=== PATIENT | male | born 1955 | race Caucasian/White ===

== ENCOUNTER → 2023-02-13 | Outpatient (CLI) | payer MEDICARE | END | disposition home or self-care (01) | LOC: LABPAT 13:20 | PROVIDERS: ATTEND Orthopaedic Surgery | DX: Z01.812 Encounter for preprocedural laboratory examination (principal); Z22.322 Carrier or suspected carrier of Methicillin resistant Staphylococcus aureus; M16.12 Unilateral primary osteoarthritis, left hip | CPT/HCPCS: 87070 ==

== ENCOUNTER 2023-02-24 11:08 | Observation (INO) | payer MEDICARE ==
[2023-02-21 09:29] VITALS: BMI 35.5
--- NOTE | 2023-02-23 12:59 | HP ---
HISTORY AND PHYSICAL DATE OF SURGERY: 02/24/2023. HISTORY OF PRESENT ILLNESS: Moises Connolly is a 67-year-old patient seen with symptomatic left hip osteoarthritis. We discussed options for treatment. The patient elected to proceed with direct anterior left total hip arthroplasty. Consent regarding the procedure was obtained. Medical clearance was provided by Yaa Martinez NP. PAST MEDICAL HISTORY: Noncontributory. PAST SURGICAL HISTORY: Noncontributory. DAILY MEDICATIONS: 1. Lisinopril. 2. Mobic. 3. Aspirin. ALLERGIES: None. SOCIAL HISTORY: He denies tobacco use. PHYSICAL EVALUATION OF LEFT HIP: Diffuse tenderness about the hip girdle. Limited range of motion with severe pain. Positive hip impingement sign. Straight-leg raise is negative. Distal neurovascular exam is intact. RADIOGRAPHS: Radiographs of the left hip revealed severe osteoarthritic changes. IMPRESSION: 1. Left hip osteoarthritis. 2. Hypertension. PLAN: Direct anterior left total hip arthroplasty. MMODL / IJN: [id number] /
[~2023-02-24 11:08] MED LIST: ACETAMINOPHEN TAB 500 MG TAB PO PRN; MELOXICAM 7.5 MG TAB PO PRN; TRANEXAMIC ACID IN NACL,ISO-OS 1,000 MG in SALINE 1 100ML.BAG IVPB PRN; ceFAZolin 3 GM in SODIUM CHLORIDE 0.9% 100 ML IVPB PRN
[2023-02-24] MEDS ORDERED: MIDAZOLAM 2 MG/2 ML VIAL IV PRN (11:20)
[2023-02-24] MEDS ORDERED: LIDOCAINE 1% (10MG/ML) FOR IV START INTRADERMA PRN (11:20)
[2023-02-24] MEDS ORDERED: DEXAMETHASONE SOD PHOSPHATE 4 MG/ML 1 ML VIAL IV ONE (11:20)
[2023-02-24] MEDS ORDERED: LACTATED RINGERS 1,000 ML IV SCH (11:20)
[2023-02-24] MEDS ORDERED: ONDANSETRON 4 MG/2 ML VIAL IVP ONE (11:20)
[2023-02-24] MEDS ORDERED: fentaNYL (PF) 50 MCG/ML 2 ML AMP IVP ONE (12:05)
[2023-02-24] MEDS ORDERED: MIDAZOLAM 2 MG/2 ML VIAL IVP ONE (12:05)
[2023-02-24] MEDS ORDERED: NEOSTIGMINE 1 MG/ML 10 ML VIAL ONE ×2 (12:25)
[2023-02-24] MEDS ORDERED: GLYCOPYRROLATE 0.2 MG/ML 2 ML VIAL ONE ×2 (12:25)
[2023-02-24] MEDS ORDERED: HYDROmorphone (PF) 1 MG/ML ONE ×2 (12:25)
[2023-02-24] MEDS ORDERED: SUCCINYLCHOLINE CHLORIDE 200 MG/10 ML VIAL IV ONE ×2 (12:25)
[2023-02-24] MEDS ORDERED: TRANEXAMIC ACID IN NACL,ISO-OS 1,000 MG/100 ML BAG ONE (12:25)
[2023-02-24] MEDS ORDERED: PHENYLEPHRINE-0.9% NACL SYG 1,000 MCG/10 ML SYRINGE ONE ×2 (12:25)
[2023-02-24] MEDS ORDERED: ROPIVACAINE 5 MG/ML 30 ML VIAL ONE ×2 (12:25)
[2023-02-24] MEDS ORDERED: SODIUM CHLORIDE 0.9% (PF) 10 ML VIAL ONE ×2 (12:25)
[2023-02-24] MEDS ORDERED: PROPOFOL 10 MG/ML 20 ML VIAL IV ONE ×2 (12:25)
[2023-02-24] MEDS ORDERED: ROCURONIUM 10 MG/ML (5 ML VIAL) IV ONE ×2 (12:25)
[2023-02-24] MEDS ORDERED: KETAMINE 10 MG/ML 20 ML VIAL ONE ×2 (12:25)
[2023-02-24] MEDS ORDERED: fentaNYL (PF) 50 MCG/ML 2 ML AMP ONE ×2 (12:25)
[2023-02-24] MEDS ORDERED: MIDAZOLAM 2 MG/2 ML VIAL ONE ×2 (12:25)
[2023-02-24] MEDS ORDERED: ceFAZolin 1,000 MG in SODIUM CHLORIDE 0.9% 1,000 ML IRRIGATION ONE (13:29)
[2023-02-24] MEDS ORDERED: HYDROmorphone 0.5 MG/0.5 ML SYRINGE IVP PRN ×2 (14:32)
[2023-02-24] MEDS ORDERED: HYDROcodone/APAP 5-325MG 1 EACH TAB PO PRN (14:32)
[2023-02-24] MEDS ORDERED: ONDANSETRON 4 MG/2 ML VIAL IVP PRN (14:32)
[2023-02-24] MEDS ORDERED: NALOXONE 0.4 MG/ML 1 ML VIAL IV PRN (14:32)
--- NOTE | 2023-02-24 14:32 | P.OP ---
Date of Procedure: 02/24/23 Preoperative Diagnosis: Left hip osteoarthritis Postoperative Diagnosis: Left hip osteoarthritis Procedure(s) Performed: Direct anterior left total hip arthroplasty Implants: 1. Depuy Corail size 13 high offset with collar press-fit femoral stem 2. Depuy pinnacle 60 mm press-fit acetabular shell 3. Depuy pinnacle neutral polyethylene acetabular liner 36 mm ID 60 mm OD 4. Biolox delta ceramic femoral head +1.5 36 mm Anesthesia: GETA, regional (Erector spinae block) Surgeon: Kendall Molina Parts And Service Manager #1: Will Swain Estimated Blood Loss (ml): 65 Pathology: other (Femoral head) Condition: stable Disposition: PACU Indications for Procedure: 67-year-old patient seen with symptomatic left hip osteoarthritis. After treatment options were discussed, patient elected to proceed with direct anterior approach left total hip arthroplasty Operative Findings: see description of procedure Description of Procedure: The patient was taken to the operative suite. Patient underwent a general anesthetic by the department of anesthesia. Patient was then transferred to the Fletcher table. Patient was given preoperative IV antibiotics and TXA. Both lower extremities were placed in standard leg spars. The hip was then prepped and draped in the normal sterile orthopedic fashion. A standard anterior incision was made beginning 3 cm lateral and 1 cm distal to the ASIS extending 10 cm. Dissection was then carried down through the subcutaneous soft tissues down to the fascia overlying the tensor fascia fariha. An incision was now made through the fascia. Careful dissection was taken down exposing the tensor fascia fariha muscle. A Cobra retractor was now placed along the medial femoral neck and a second one along the lateral femoral neck. The venous circumflex vessels were now identified, cauterized and clipped. We identified the anterior hip capsule. An incision was made through the hip capsule along the lateral border. I performed a partial anterior capsulectomy. Retractors were now placed around the femoral neck itself. A femoral neck cut was now made with a sagittal saw. It was completed with an osteotome at the lateral neck area. The femoral head was now removed without difficulty. The extremity was now rotated to 60 of external rotation. It was locked in position. Residual labrum was now debrided out. Serial reaming was performed of the acetabulum while Uli HOLLAND assisted holding an anterior retractor for exposure. Once we reached the appropriate size and a trial was position and fit nicely. The appropriate size was now chosen opened and made available. It was introduced into the acetabulum without difficulty. The C-arm/fluoroscopy was now brought into the operative field. We made sure we had a true AP pelvic view. We now under direct C- arm/fluoroscopy introduced into the acetabular component with appropriate version and inclination. I held the cup in appropriate position while Uli HOLLAND used a mallet to seat the acetabular component. I noted the component now to be well seated and stable. Acetabular cup introduce her was removed. The C-arm was pulled back. An appropriate liner was introduced and clicked into position. It was felt to be stable. At this point retractors were removed. The extremity was now placed into 130 external rotation with no traction. The leg was now dropped to the ground and adducted. Appropriate retractors were now positioned along the proximal femur. We also placed our femoral look into position. Additional capsular releasing was performed to gain access to the proximal femur. We now used a box osteotome. A canal finder was now utilized. Serial broaching was now performed with the assistance of Uli HOLLAND tapping the broaches down with a mallet while held the broach in appropriate rotation and position. This was done until we reached the appropriate size with good overall rotational stability. Appropriate calcar planing was performed. A t rial head/neck was placed into position. The hip was now reduced. The C- arm/fluoroscopy was brought back into the operative field. I obtained AP pelvis which demonstrated adequate leg length alignment. The trial components appeared adequately size and adequately positioned. The C-arm/fluoroscopy was pulled back. Retractors were repositioned and the hip was dislocated. The leg was again taken down to the ground and adducted. Appropriate retractors were repositioned as well as the femoral hook. All trial components were removed. The femoral implant was opened along with the femoral head. The femoral implant was introduced on the appropriate handle into our pre-broached area. I held the component position well Uli HOLLAND used a mallet to seat the femoral component. The femoral component was now noted to be well seated and stable.. The femoral head was introduced with good positioning and fixation noted. Retractors were now removed. The hip was now reduced. There appeared be good positioning of the hip confirmed on intraoperative fluoroscopy. Spot films were obtained to document this. A second gram of TXA was given. Bipolar cautery had been utilized intermittently through the procedure for hemostasis. The wound was irrigated copiously with pulse lavage mechanical irrigation. The fascia was repaired with Vicryl suture. The subcutaneous soft tissues were repaired in layers with Vicryl suture. The skin was approximated with pernio/Dermabond. Sterile dressings were applied. Patient was then awakened, transferred to a bed and taken to recovery in stable condition. Uli HOLLAND assisted with the complex procedure.
--- NOTE | 2023-02-24 14:36 | XR ---
EXAMINATION TYPE: XR Hip Limited LT DATE OF EXAM: 02/24/2023 COMPARISON: NONE HISTORY: Postop TECHNIQUE: 2 views submitted FINDINGS: There is no evidence of erosive change or acute fracture. DAP: .7337 IMPRESSION: 1. No evidence of acute fracture or dislocation.
--- NOTE | 2023-02-24 14:38 | FL ---
EXAMINATION TYPE: FL guidance operating room DATE OF EXAM: 02/24/2023 HISTORY: Fluoroscopy time Total dose area product (DAP) in uGy*m?, mGy*cm? (or similar): 0.7337 IMPRESSION: 1. Fluoroscopy time.
--- NOTE | 2023-02-24 14:57 | P.ANPRN ---
Procedure Note - Anesthesia - Nerve Block Performed Left Martin Time Out Performed: Yes (12:04) Date of Procedure: 02/24/23 Procedure Start Time: : Procedure Stop Time: :08 Location of Patient: PreOp Indication: Acute Post-Operative Pain, Requested by Surgeon (DR Molina) Sedation Type: Sedate with meaningful contact maintained Preparation: Sterile Prep Position: Supine Catheter: None Needle Types: Pajunk Needle Gauge: 21 Ultrasound used to visualize needle placement: Yes Ultrasound used to observe medication spread: Yes Injectate: 0.5% Ropivacaine (see comment for volume) (20cc +5cc PF Normal saline) Blood Aspirated: No Pain Paresthesia on Injection Noted: No Resistance on Injection: Normal Image Stored and Saved: Yes Events: Uneventful and Well Tolerated
[2023-02-24] MEDS: HYDROmorphone 0.5 MG/0.5 ML SYRINGE IVP PRN ×3 (15:08→16:44)
[2023-02-24] MEDS: LACTATED RINGERS 1,000 ML IV SCH ×2 (15:20→16:18)
--- NOTE | 2023-02-24 17:51 | P.CONS ---
History of Present Illness - Reason for Consult Consult date: 02/24/23 HTN Requesting physician: Kendall Molina - Chief Complaint hip pain - History of Present Illness Patient is a 67-year-old male with a history of hypertension, osteoarthritis, and prior tobacco use who presented for elective left direct anterior hip total arthroplasty. He tolerated the procedure well without any immediate postoperative complications. Patient seen and examined at bedside. His is present. She reports that his oxygen has been dropping into the high 70s when he is sleeping but that when she wakes him up it goes right back up. He reports some throbbing pain in his left hip. He denies any chest pain, shortness breath, nausea, vomiting, lightheadedness. He denies any recent cough, cold, fever, flu. He has been using a a cane mostly at home and at times a walker. Vital signs reviewed General: nontoxic, no distress, appears at stated age Derm: warm, dry Eyes: EOMI, no lid lag, anicteric sclera, pupils equal round reactive to light ENT: Nose and ears atraumatic, no thrush, no pharyngeal erythema Cardiovascular: S1S2 reg, no murmur, positive posterior tibial pulse bilateral, no edema Lungs: clear to auscultation bilateral, no rhonchi, no rales, no wheeze, no accessory muscle use Abdominal: soft, nontender to palpation, no guarding, no appreciable organomegaly, normal bowel sounds Ext: no gross muscle atrophy, moving all 4 extremities independently, no contractures Neuro: CN II-XII grossly intact, no focal neuro deficits Psych: Alert, oriented, appropriate affect Assessment: 67 yo M with left direct anterior hip total arthroplasty Acute hypoxic respiratory failure, due to pain medication and sedation HTN elevated post-op likely due to pain CBD use Imaging: hip x-ray- no fracutre or dislocation Data Review: Vitals reviewed temperature 97.5, pulse 75, respirations 18, blood pressure 1 44/74, O2 sat 94% on room air Reviewed Preoperative blood work. Hemoglobin 15, hematocrit 45.9, BUN 25.2, creatinine 1.2 with GFR 71.1 Plan: -Resume home lisinopril, follow blood pressures -Add oxygen while patient is sleeping -Incentive spirometer -Check CBC in a.m. -PT/OT -Continue with Dilaudid and [place] as needed for pain Thank you for allowing us to participate in the care of this pleasant patient. Do not hesitate to contact us with questions. Someone can be reached from the [facility] hospitalist group all hours of the day at [phone] or via [employer]. This dictation was prepared using [employer] voice recognition software. Though every attempt is made to correct errors during during dictation some may still exist. Past Medical History Past Medical History: Hypertension, Osteoarthritis (OA) History of Any Multi-Drug Resistant Organisms: None Reported Past Surgical History: Orthopedic Surgery Additional Past Surgical History / Comment(s): ORIF RT LEG IN TEENS OR EARLY 20S. URETHRAL BALLOON 2019. COLONOSCOPY Past Anesthesia/Blood Transfusion Reactions: No Reported Reaction Smoking Status: Former smoker - Past Family History Mother Family Medical History: No Reported History Medications and Allergies Home Medications Medication Instructions Recorded Confirmed Type Aspirin EC [Ecotrin Low Dose] 81 mg PO DAILY 02/21/23 02/21/23 History Meloxicam [Mobic] 15 mg PO DAILY 02/21/23 02/21/23 History lisinopriL 40 mg PO DAILY 02/21/23 02/21/23 History Allergies Allergy/AdvReac Type Severity Reaction Status Date / Time shellfish derived Allergy Rash/Hives Verified 02/24/23 11:32 Physical Exam Osteopathic Statement: *. No significant issues noted on an osteopathic structural exam other than those noted in the History and Physical/Consult. Vitals: Vital Signs Temp Pulse Pulse Resp BP Pulse Ox 02/24/23 16:50 97.5 F L 18 144/74 94 L 02/24/23 16:01 75 16 146/54 94 L 02/24/23 15:47 73 16 162/56 100 02/24/23 15:32 78 16 155/51 100 02/24/23 15:17 70 16 157/58 100 02/24/23 15:02 97.6 F 87 22 172/107 98 02/24/23 12:25 58 L 16 174/75 100 02/24/23 12:10 62 16 167/57 100 02/24/23 11:44 97.4 F L 88 16 181/78 97 Intake and Output 02/24/23 02/24/23 02/24/23 06:59 14:59 22:59 Intake Total 901 400 Output Total 65 Balance 836 400 Intake: IV 901 400 Output: Estimated Blood Loss 65 Other: Weight 140.3 kg
[2023-02-24] MEDS: HYDROcodone/APAP 7.5-325MG 1 EACH TAB PO PRN (20:27)
[2023-02-24] MEDS: ceFAZolin 3 GM in SODIUM CHLORIDE 0.9% 100 ML IVPB SCH (20:27)
[2023-02-24] MEDS ORDERED: SENNOSIDES-DOCUSATE SODIUM 1 EACH TAB PO SCH (21:00)
[2023-02-25] MEDS: HYDROmorphone 0.5 MG/0.5 ML SYRINGE IVP PRN (00:40)
[2023-02-25] MEDS: LACTATED RINGERS 1,000 ML IV SCH (00:41)
[2023-02-25] MEDS: HYDROcodone/APAP 7.5-325MG 1 EACH TAB PO PRN ×2 (04:02→13:04)
[2023-02-25] MEDS: ceFAZolin 3 GM in SODIUM CHLORIDE 0.9% 100 ML IVPB SCH (04:03)
[2023-02-25 07:20] VITALS: BP 148/78; PULSE 91; RESP 18; TEMP 98.6
--- NOTE | 2023-02-25 08:08 | P.PN ---
Subjective Progress Note Date: 02/25/23 Principal diagnosis: Status post direct anterior left total hip arthroplasty Patient is examined today at bedside, he is resting in his hospital bed. Patient's is present at bedside. He states that the pain is controlled, he notices more discomfort when up and ambulating. He did have some trouble initiating his urinary stream today, this seems to be improving, they are watching this closely with postvoid residuals. He has no headaches, lightheadedness, chest pain or shortness of breath. Objective - Vital Signs Vital signs: Vital Signs Temp 98.6 F 02/25/23 07:19 Pulse 91 02/25/23 07:19 Resp 18 02/25/23 07:19 BP 148/78 02/25/23 07:19 Pulse Ox 97 02/25/23 07:19 FiO2 Intake & Output 02/24/23 02/25/23 02/25/23 18:59 06:59 18:59 Intake Total 1501 1640 Output Total 65 500 Balance 1436 1140 Weight 140.3 kg Intake: IV 1301 Intake, IV Titration 200 1000 Amount Lactated Ringers 1,000 ml 200 900 @ 100 mls/hr IV .Q10H [facility] Rx#:[id number] ceFAZolin 3 gm In Sodium 100 Chloride 0.9% 100 ml @ 200 mls/hr IVPB Q8H [facility] Rx#:[id number] Oral 640 Output: Urine 500 Estimated Blood Loss 65 - Exam Left lower extremity: Incision is clean, dry, and intact. The foam dressing is in good condition. There is minimal soft tissue swelling and ecchymosis surrounding the medial and lateral aspects of the incision. Calf is soft, no tenderness with palpation. Plantar flexion, dorsiflexion, EHL, FHL are intact. Sensory exam to light touch throughout the extremity is intact, dorsal pedis pulses 2+. Assessment and Plan Assessment: Postoperative day #1 status post direct anterior left total hip arthroplasty Plan: Pain control, continues current medications DVT prophylaxis, continue Lovenox during hospital stay Wound care instructions were discussed, this including icing and elevating along with showering instructions Await physical therapy/occupational therapy evaluation. Weight-bear as tolerated with walker Encourage incentive spirometer Medical recommendations Discharge planning: Pending how patient does physical therapy, hopefully discharge home today with home therapy Time with Patient: Less than 30
[2023-02-25 08:59] LABS: HCT 40.6 % (39.0-53.0); HGB 13.3 gm/dL (13.0-17.5); MCH 30.2 pg (25.0-35.0); MCHC 32.6 g/dL (31.0-37.0); MCV 92.6 fL (80.0-100.0); Mean Platelet Volume 7.9; Platelet Count 197 k/uL (150-450); RBC 4.38 m/uL (4.30-5.90); RDW 13.6 % (11.5-15.5); WBC 7.9 k/uL (3.8-10.6)
[2023-02-25] MEDS ORDERED: lisinopriL 20 MG TAB PO SCH (09:00)
[2023-02-25] MEDS ORDERED: FAMOTIDINE 20 MG TAB PO SCH (09:00)
[2023-02-25] MEDS ORDERED: MELOXICAM 7.5 MG TAB PO SCH (09:00)
[2023-02-25] MEDS ORDERED: ENOXAPARIN 40 MG/0.4 ML SYRINGE SQ SCH (09:00)
--- NOTE | 2023-02-25 10:21 | P.PN ---
Subjective Progress Note Date: 02/25/23 Patient is a 67-year-old male with a history of hypertension, osteoarthritis, and prior tobacco use who presented for elective left direct anterior hip total arthroplasty. He tolerated the procedure well without any immediate postoperative complications. Patient seen and examined at bedside. Doing well. Pain is well controlled. No nausea or vomiting. Has been up and walking with physical therapy. Had a discussion with him and his that I would recommend staying on lisinopril 40 mg daily. Vital signs reviewed General: nontoxic, no distress, appears at stated age Cardiovascular: S1S2 reg, no murmur, positive posterior tibial pulse bilateral, Lungs: CTA bilateral, no rhonchi, no rales , no accessory muscle use Abdominal: soft, nontender to palpation, no guarding, no appreciable organomegaly Ext: no gross muscle atrophy, no edema, no contractures Neuro: CN II-XI grossly intact, no focal neuro deficits Psych: Alert, oriented, appropriate affect Assessment: 67 yo M with left direct anterior hip total arthroplasty Acute hypoxic respiratory failure, due to pain medication and sedation- resolved HTN CBD use Obesity with BMI 36.7 Data Review: Vital signs revealed temperature 98.6 pulse 91, respirations 18, blood pressure 148/78, O2 sat 97% on room air Labs reviewed and postoperative hemoglobin 13.3 Plan: Medically optimized for discharge at the discretion of orthopedic surgery. I have addressed his home lisinopril on discharge medication reconciliation. I have added parameters for him to take the 40 mg and when to consider cutting the pill in half for 20 mg. I did speak with him and he will follow-up with his primary care provider (was located 3 hours from here) in approximately one week in he will take his blood pressures daily and make a log. Thank you for allowing us to participate in the care of this pleasant patient. Do not hesitate to contact us with questions. Someone can be reached from the [facility] hospitalist group all hours of the day at [phone] or via [employer]. This dictation was prepared using [employer] voice recognition software. Though every attempt is made to correct errors during during dictation some may still exist. Objective - Vital Signs Vital signs: Vital Signs Temp 98.6 F 02/25/23 07:19 Pulse 91 02/25/23 09:05 Resp 18 02/25/23 09:05 BP 148/78 02/25/23 07:19 Pulse Ox 97 02/25/23 07:19 FiO2 Intake & Output 02/24/23 02/25/23 02/25/23 18:59 06:59 18:59 Intake Total 1501 1640 Output Total 65 500 300 Balance 1436 1140 -300 Weight 140.3 kg Intake: IV 1301 Intake, IV Titration 200 1000 Amount Lactated Ringers 1,000 ml 200 900 @ 100 mls/hr IV .Q10H ART Rx#:[id number] ceFAZolin 3 gm In Sodium 100 Chloride 0.9% 100 ml @ 200 mls/hr IVPB Q8H [facility] Rx#:[id number] Oral 640 Output: Urine 500 300 Estimated Blood Loss 65 Other: Voiding Method Urinal - Labs CBC & Chem 7: 02/25/23 08:36
--- NOTE | 2023-02-25 11:52 | P.DS ---
Providers Date of admission: 02/25/23 08:04 Expected date of discharge: 02/25/23 Attending physician: Kendall Molina Consults: 02/24/23 14:32 Consult Physician Routine Consulting Provider: Holly Mon Consult Reason/Comments: Medical management Do you want consulting provider notified?: Yes Primary care physician: Stated None Hospital Course: Date of admission: 02/24/2023 Date of discharge: 02/25/2023 Admission diagnosis: Status post direct anterior left total hip arthroplasty Discharge diagnosis: Same Attending physician: Dr. Molina Surgical procedures: Direct anterior left total hip arthroplasty Brief history: Patient is a 67-year-old male with a history of progressive primary left hip osteoarthritis. At this point patient has failed conservative treatment measures and has opted to proceed with a elective direct anterior left total hip arthroplasty. Hospital course: Details of patient's surgery can be found in operative report. Patient tolerated the procedure well and was subsequently transported to orthopedic floor. Patient's orthopeidc and medical care was provided daily. Patient had daily laboratory tests performed for evaluation of overall blood counts. Patient had daily physical therapy to include strengthening range of motion as well as education with walker ambulation. Patient was treated with Lovenox for their postoperative DVT prophylaxis during their inpatient stay. Patient was noted to have a relatively uneventful postoperative course. Patient reported satisfactory pain control with oral pain medications by postoperative day 0. Patient showed satisfactory progress with physical therapy. Patient moved steadily through the program and had no difficulty meeting the goals by postoperative day 1. Given patient's otherwise satisfactory course and having met physical therapy goals, plan is to discharge patient home on postoperative day 1. Discharge condition/disposition: Patient will be discharged home in stable condition. Discharge medications: Instructions are given on resumption of patient's normal daily medications per primary care recommendation, in addition patient will be prescribed Mcallister 7.5 mg/325 mg, Senna. Discharge instructions: 1. Wound care and infection precautions, keep incision dry and covered while showering, no lotions, creams, moisturizers. No soaking, tubs, pools, hottubs. Do not scrub over the incision. 2. Weight-bear as tolerated with walker / cane until follow-up. 3. Ice and elevate when necessary. Do not exceed 20 minutes per hour with ice pack. 4. Utilize compression sleeve until seen at first follow up appointment. 5. Visiting nursing care. 6. Home physical therapy. 7. Pain meds and anticoagulants per prescription. 8. Pain medication has potential to cause constipation. Increase oral fluid and fiber intake. Contact primary care provider if you have not had a bowel movement within 48 hours after discharge 9. No anti-inflammatory medication until discussed at first post operative visit, this including Motrin, Aleve, Mobic, Diclofenac. 10. Follow up in office at 2 weeks postop with Uli Swain PA-C/sEtuardo Delgadillo 11. Follow up with your primary care doctor 7-10 days after discharge. 12. Contact [facility] with any questions, . Procedures: Direct anterior left total hip arthroplasty Patient Condition at Discharge: Good Plan - Discharge Summary Discharge Rx Participant: Yes New Discharge Prescriptions: New HYDROcodone/APAP 7.5-325MG [Mcallister 7.5] 1 each PO Q4HR PRN #42 tab PRN Reason: Pain Sennosides/Docusate Sodium [Senna-S 8.6-50 mg Tablet] 1 each PO DAILY PRN #30 tablet PRN Reason: Constipation Aspirin [Adult Low Dose Aspirin EC] 81 mg PO BID #60 tab Continue lisinopriL 40 mg PO DAILY No Action Aspirin EC [Ecotrin Low Dose] 81 mg PO DAILY Meloxicam [Mobic] 15 mg PO DAILY Discharge Medication List Aspirin EC [Ecotrin Low Dose] 81 mg PO DAILY 02/21/23 [History] Meloxicam [Mobic] 15 mg PO DAILY 02/21/23 [History] lisinopriL 40 mg PO DAILY 02/21/23 [History] Aspirin [Adult Low Dose Aspirin EC] 81 mg PO BID #60 tab 02/25/23 [Rx] HYDROcodone/APAP 7.5-325MG [Mcallister 7.5] 1 each PO Q4HR PRN #42 tab 02/25/23 [Rx] Sennosides/Docusate Sodium [Senna-S 8.6-50 mg Tablet] 1 each PO DAILY PRN #30 tablet 02/25/23 [Rx] Follow up Appointment(s)/Referral(s): [facility] [NON-STAFF] - As Needed (walker) [facility], [NON-STAFF] - As Needed Will Swain PAC [PHYSICIAN CUSTOMER [employer]] - 03/12/23 1:40 pm None,Stated [Primary Care Provider] - 1 Week (Please follow-up with your primary care provider in 1 week for blood pressures. ) Activity/Diet/Wound Care/Special Instructions: Please check blood pressure once daily. Currently I recommend staying on lisinopril 40 mg daily, if systolic blood pressure (top number) is less than 100 or diastolic blood pressure (bottom number) is less than 70 could consider taking 1/2 a tablet. Orthopedic Discharge Instructions: 1. Wound care and infection precautions, keep incision dry and covered while showering, no lotions, creams, moisturizers. No soaking, pools, hot tubs. Do not scrub over incision. 2. Weight-bear as tolerated with walker / cane until follow-up. 3. Ice and elevate when necessary. Do not exceed 20 minutes per hour with ice pack. 4. Utilize compression sleeve until seen at first follow up appointment. 5. Pain meds and anticoagulants per prescription. 6. Pain medication has potential to cause constipation. Increase oral fluid and fiber intake. Contact primary care provider if you have not had a bowel movement within 48 hours after discharge. 7. No anti-inflammatory medication until discussed at first post operative visit, this including Motrin, Aleve, Mobic, Diclofenac. 8. Follow up in office at 2 weeks postop with Uli Swain PA-C/[place] PA-C 9. Follow up with your primary care doctor 7-10 days after discharge. 10. Contact [facility] with any questions, . Wound care instructions: 1. Ok to remove foam dressing on 03/01/2023 2. After removal of dressing, okay to shower directly over incision 3. Apply Cellerate gel with q tip every 2-3 days 4. Do not apply to Cellerate 4 days prior to post op visit Discharge Disposition: HOME WITH HOME HEALTH SERVICES
== END 2023-02-25 13:54 | disposition home health service (06) ==
LOC: OR 11:08 → 4SSUR 14:54 → OR 02-25 08:04 → 4SSUR 02-25 08:04
PROVIDERS: ADMIT Orthopaedic Surgery; ATTEND Orthopaedic Surgery
DX: M16.12 Unilateral primary osteoarthritis, left hip (principal); J96.01 Acute respiratory failure with hypoxia; T40.2X5A Adverse effect of other opioids, initial encounter; I10 Essential (primary) hypertension; Z79.82 Long term (current) use of aspirin; Z79.1 Long term (current) use of non-steroidal anti-inflammatories (NSAID); Z79.899 Other long term (current) drug therapy; Z91.013 Allergy to seafood; Z87.891 Personal history of nicotine dependence; Z98.890 Other specified postprocedural states
CPT/HCPCS: 97161; 64447; 86900; 86901; 85027; 86850; 73501; 36415; 27130; G0378; C1776; J2250; J0330; J1100; J2710; J0690 ×3; J2405; J1650; J3010; J1170 ×3; J2795; J2370; J2704